=== PATIENT | male | born 1980 | race Caucasian/White ===

== ENCOUNTER 2018-07-31 01:46 | Emergency (ER) | payer SELFPAY ==
[~2018-07-31] VITALS: Ht 175.3 cm; Wt 123.3 kg
[2018-07-31 01:54] VITALS: BP 115/71
--- NOTE | 2018-07-31 02:02 | NUR ---
INCOME TAX PREPARER: PT. AMBULATED INTO TRIAGE AND BACK TO ROOM WITH STEADY GAIT.
--- NOTE | 2018-07-31 03:41 | NUR ---
PT TBDC. AWAITING D/C INSTRUCTIONS.
== END 2018-07-31 03:51 | disposition home or self-care (01) ==
LOC: ED 03:40
DX: S39.012A Strain of muscle, fascia and tendon of lower back, initial encounter (principal); S29.012A Strain of muscle and tendon of back wall of thorax, initial encounter; S16.1XXA Strain of muscle, fascia and tendon at neck level, initial encounter; G89.11 Acute pain due to trauma; V49.49XA Driver injured in collision with other motor vehicles in traffic accident, initial encounter; Y93.89 Activity, other specified; Y92.89 Other specified places as the place of occurrence of the external cause; Y99.8 Other external cause status
CPT/HCPCS: 72050; 72072; 72110; 99283

== ENCOUNTER 2020-03-06 18:06 | Emergency (ER) | payer SELFPAY ==
[~2020-03-06] VITALS: Ht 175.3 cm; Wt 119.9 kg
--- NOTE | 2020-03-06 18:52 | NUR ---
TASK RN: FIRST CONTACT WITH PT. PT SITTING UP IN [facility], NAD NOTED. REPORTS INTERMITTENT FEVER/DIARRHEA SINCE TESTING POSITIVE FOR COVID-19 THREE MONTHS AGO. LAST FEVER YESTERDAY OF 103.0, AFEBRILE TODAY. DENIES ABD PAIN, HEMATOCHEZIA, N/V, CP, SOB, OR PRODUCTIVE COUGH. PT REPORTS "I CAN'T GO BACK TO WORK YET AND THEY TOLD ME THAT IF I DON'T SHOW THAT I'M STILL POSITIVE THEY'LL FIRE ME". NO RESPIRATORY DISTRESS NOTED. SPEAKING IN FULL SENTENCES WO DIFFICULTY, SPO2 >90% ON RA. TACHY, HR 112. MM MOIST. ABD NON-TENDER.
[2020-03-06 19:29] LABS: BASOPHILS # (AUTO) 0.03 x10^3/uL (0-0.1); BASOPHILS % (AUTO) 0 % (0-1); EOSINOPHILS # (AUTO) 0.18 x10^3/uL (0-0.4); EOSINOPHILS % (AUTO) 2 % (1-7); LYMPHOCYTES # (AUTO) 1.88 x10^3/uL (1-3.4); LYMPHOCYTES % (AUTO) 20 % (22-44); MD NO; MEAN CORPUSCULAR HEMOGLOBIN 27.4 pg (27.5-34.5); MEAN CORPUSCULAR HGB CONC 33.4 g/dL (33.2-36.2); MEAN CORPUSCULAR VOLUME 82.2 fL (81-97); MEAN PLATELET VOLUME 9.7 fL (7.4-10.4); MONOCYTES # (AUTO) 0.73 x10^3/uL (0.2-0.8); MONOCYTES % (AUTO) 8 % (2-9); NEUTROPHILS # (AUTO) 6.47 x10^3/uL (1.8-6.8); NEUTROPHILS % (AUTO) 70 % (42-75); PLATELET COUNT 247 x10^3/uL (130-400); RED BLOOD COUNT 5.65 x10^6/uL (4.38-5.82); RED CELL DISTRIBUTION WIDTH 15.3 % (9.4-14.8)
[2020-03-06 19:38] LABS: ALBUMIN 3.5 g/dL (3.4-5.0); ANION GAP 6 mmol/L (5-15); CALCIUM 8.7 mg/dL (8.5-10.1); CHLORIDE 102 mmol/L (98-107); CREATININE 1.28 mg/dL (0.7-1.3)
[2020-03-06 19:57] VITALS: BP 135/68
--- NOTE | 2020-03-06 19:58 | NUR ---
ALL RESULTS ARE BACK AT THIS TIME. CHART UP FOR RECHECK.
--- NOTE | 2020-03-06 20:16 | NUR ---
MD AT BEDSIDE TO UPDATE PT ON POC.
== END 2020-03-06 21:14 | disposition home or self-care (01) ==
LOC: ED 20:27
DX: R19.7 Diarrhea, unspecified (principal); R06.02 Shortness of breath; Z20.828 Contact with and (suspected) exposure to other viral communicable diseases; R05 Cough; R73.9 Hyperglycemia, unspecified; R00.0 Tachycardia, unspecified
CPT/HCPCS: 36415; 71045; 80048; 82040; 85025; 87635; 99284